=== PATIENT | male | born 1995 | race Hispanic/Latino ===

== ENCOUNTER 2025-09-07 18:31 | Emergency (ER) | payer BC, SELFPAY ==
[2025-09-07 19:31] LABS: #Basophils 0.1 thou/uL (0.0-0.2); #Eosinophils 0.1 thou/uL (0.0-0.7); #Lymphocytes 1.6 thou/uL (1.20-3.40); #Monocytes 0.5 thou/uL (0.11-0.59); #Neutrophils 3.3 thou/uL (1.40-6.50); %Basophils 1.1 % (0.0-1.0); %Eosinophils 1.5 % (0.0-10.0); %Lymphocytes 28.8 % (21.0-51.0); %Monocytes 9.4 % (0.0-10.0); %Neutrophils 59.3 % (42.0-75.0); Hematocrit 50.0 % (42.0-52.0); Hemoglobin 16.9 g/dL (14.0-18.0); Mean Corpuscular Hemoglobin 29.2 pg (27.0-31.0); Mean Corpuscular Volume 86.2 fl (78.0-98.0); Platelet Count 279 10x3/uL (130-400); Red Blood Cell (RBC) Count 5.79 mill/uL (4.70-6.10); White Blood Cell (WBC) Count 5.6 10x3/uL (4.8-10.8)
[2025-09-07 19:36] LABS: ALT (SGPT) 19 U/L (Less than 45); AST (SGOT) 27 U/L (11-34); Albumin 4.5 g/dL (3.1-4.5); Alkaline Phosphatase 81 U/L (40-110); Anion Gap 14 mmol/L (10-20); BUN (Urea Nitrogen) 15 mg/dL (8.9-20.6); Bilirubin, Total 0.4 mg/dL (0.3-1.2); Calc. Creatinine Clearance 0 mL/min (70-130); Calcium 9.5 mg/dL (7.8-10.44); Carbon Dioxide 24 mmol/L (22-29); Chloride 104 mmol/L (98-107); Globulin 3.5 g/dL (2.4-3.5); Glucose 99 mg/dL (70-105); Potassium 4.3 mmol/L (3.5-5.1); Sodium 138 mmol/L (136-145)
[2025-09-07 20:09] LABS: Glucose, Urine (Dipstick) Negative (Negative); Leukocyte Negative (Negative); Protein, Urine (Dipstick) Negative (Neg-Trace); Specific Gravity, Urine 1.010 (1.005-1.030)
[2025-09-07 20:16] LABS: CAUTI Indications for Culture Acute Hematuria; RBC/HPF 0-3 HPF (0-3); Urine Culture Reflex No No; WBC/HPF None Seen HPF (0-3)
== END 2025-09-07 20:35 | disposition home or self-care (01) ==
LOC: NAV ERS 18:31
DX: R42 Dizziness and giddiness (principal); R29.700 NIHSS score 0
CPT/HCPCS: 80053; 81001; 85025; 99284